=== PATIENT | female | born 2000 | race Caucasian/White ===

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

== ENCOUNTER 2019-03-28 18:53 | Emergency (ER) | payer SELFPAY ==
[~2019-03-28] VITALS: Ht 175.3 cm; Wt 100.0 kg
[2019-03-28 19:20] LABS: BASOPHILS # (AUTO) 0.04 x10^3/uL (0-0.3); BASOPHILS % (AUTO) 0 % (0-1); EOSINOPHILS # (AUTO) 0.14 x10^3/uL (0-0.8); EOSINOPHILS % (AUTO) 1 % (1-7); LYMPHOCYTES # (AUTO) 3.87 x10^3/uL (1-6.1); LYMPHOCYTES % (AUTO) 31 % (22-44); MD NO; MEAN CORPUSCULAR HEMOGLOBIN 29.6 pg (27.0-34.8); MEAN CORPUSCULAR HGB CONC 32.9 g/dL (32.4-35.8); MEAN PLATELET VOLUME 8.1 fL (7.4-10.4); MONOCYTES # (AUTO) 0.74 x10^3/uL (0-1.4); MONOCYTES % (AUTO) 6 % (2-9); NEUTROPHILS # (AUTO) 7.73 x10^3/uL (1.8-8.0); NEUTROPHILS % (AUTO) 62 % (42-75); PLATELET COUNT 296 x10^3/uL (130-400); RED BLOOD COUNT 4.85 x10^6/uL (3.82-5.3); RED CELL DISTRIBUTION WIDTH 13.5 % (9.6-15.2)
[2019-03-28 19:31] LABS: ALBUMIN 3.2 g/dL (3.4-5.0); ANION GAP 8 mmol/L (5-15); CALCIUM 8.2 mg/dL (8.5-10.1); CHLORIDE 111 mmol/L (98-107)
[2019-03-28 19:34] LABS: TROPONIN I < 0.015 ng/mL (0.000-0.045)
--- NOTE | 2019-03-28 19:40 | NUR ---
BIB [facility] D/T DIZZINESS CHEST PAIN WEAKNESS LIGHT HEADACHE WHILE DONATING PLASMA PT WAS RECEIVED NS 500CC BUT STILL HAVING SYMPTOMS [facility] WAS CALLED VSS STABLE AAOX4 dr plascencia at [facility] imaging labs were done pt is resting
--- NOTE | 2019-03-28 20:54 | NUR ---
GIVEN WATER PER PT'S REQUEST BUT STILL C/O HEADNESS DIZZINESS
[2019-03-28] MEDS ORDERED: ACETAMINOPHEN 500 MG TABLET PO ONE (21:00)
[2019-03-28] MEDS ORDERED: ACETAMINOPHEN 500 MG TABLET ONE (21:36)
--- NOTE | 2019-03-28 21:40 | NUR ---
given tyrenol po per md order vss stable friends at bed side
--- NOTE | 2019-03-28 22:23 | NUR ---
given dc instruction pt understood well pt up ambulated to check out with friends
[2019-03-28 22:24] VITALS: BP 112/70
== END 2019-03-28 22:25 | disposition home or self-care (01) ==
LOC: ED 22:00
DX: R55 Syncope and collapse (principal); R51 Headache; F41.1 Generalized anxiety disorder
CPT/HCPCS: 36415; 70450; 71045; 80048; 82040; 83880; 84484; 85025; 93005; 99284

== ENCOUNTER 2021-05-26 15:28 | Emergency (ER) | payer BC, OTHER ==
[~2021-05-26] VITALS: Ht 175.3 cm; Wt 105.0 kg
[2021-05-26] MEDS ORDERED: AMIT25TA PO (16:53)
[2021-05-26] MEDS ORDERED: LAMO250T2 PO (16:53)
[2021-05-26] MEDS ORDERED: CLON-364 PO (16:53)
[2021-05-26] MEDS ORDERED: KETOROLAC 30 MG/1 ML IM ONE (17:30)
[2021-05-26] MEDS ORDERED: ACETAMINOPHEN 500 MG TABLET PO ONE (17:30)
[2021-05-26] MEDS ORDERED: LIDODERM 5% PATCH TD ONE (17:30)
[2021-05-26 18:10] VITALS: BP 134/65
--- NOTE | 2021-05-26 18:13 | NUR ---
MEDS PER MAR, PT KEEPS SPITTING OUT TYLENOL AND MAKING FACES. VSS.
== END 2021-05-26 18:28 | disposition home or self-care (01) ==
LOC: ED 17:11
DX: R00.2 Palpitations (principal); M25.511 Pain in right shoulder; F17.210 Nicotine dependence, cigarettes, uncomplicated; R07.89 Other chest pain; R11.0 Nausea; R94.31 Abnormal electrocardiogram [ECG] [EKG]
CPT/HCPCS: 71046; 73030; 93005; 96372; 99284; 99406; J1885